=== PATIENT | male | born 1985 | race Caucasian/White ===

== ENCOUNTER 2019-12-18 08:25 | Emergency (ER) | payer OTHER ==
[2019-12-18 09:45] LABS: APPEARANCE,URINE SLIGHTLY-CLOUDY; BILIRUBIN,URINE NEGATIVE (NEGATIVE); COLOR,URINE DARK YELLOW; GLUCOSE, URINE NEGATIVE (NEGATIVE); KETONES,URINE NEGATIVE (NEGATIVE); LEUKOCYTE ESTERASE,URINE NEGATIVE (NEGATIVE); NITRITE,URINE NEGATIVE (NEGATIVE); PROTEIN,URINE 30 mg/dL (NEGATIVE); URINE SPECIFIC GRAVITY 1.026
[2019-12-18] MEDS ORDERED: HYDROCODONE/ACETAMINOPHEN 5-325 MG TABLET PO ONE (13:39)
--- NOTE | 2019-12-18 14:05 | RADIOLOGY REPORT (SQ) ---
EXAM DESCRIPTION: HIP LEFT AP/LATERAL IMAGES COMPLETED DATE/TIME: 12/18/2019 1:56 pm REASON FOR STUDY: left hip pain COMPARISON: None. NUMBER OF VIEWS: Two views. TECHNIQUE: AP pelvis and additional frog leg view of the left hip. LIMITATIONS: None. FINDINGS: MINERALIZATION: Normal. LEFT HIP: No fracture or dislocation. No worrisome bone lesions. RIGHT HIP: No fracture or dislocation. No worrisome bone lesions. Limited views. PUBIS AND ISCHIUM: No fracture. PELVIS: No fracture. SACRUM: No fracture or dislocation. No worrisome bone lesions. LOWER LUMBAR SPINE: No fracture or dislocation. No worrisome bone lesions. No significant disc disea se. SOFT TISSUES: No findings. OTHER: No other significant finding. IMPRESSION: NEGATIVE STUDY OF THE LEFT HIP AND PELVIS. NO ACUTE POST-TRAUMATIC CHANGES. NO EXPLANAT ION FOR PAIN. COMMENT: Pelvic fractures are often occult on plain radiographs. If strong clinical suspicion for fracture, recommend CT or MR. TECHNICAL DOCUMENTATION: JOB ID: [id number] 2010 [employer]- All Rights Reserved Reading location - IP/workstation name: [email or web address]
--- NOTE | 2019-12-18 15:46 | RADIOLOGY REPORT (SQ) ---
EXAM DESCRIPTION: CT LT LOWER EXTREMITY WITHOUT IMAGES COMPLETED DATE/TIME: 12/18/2019 3:27 pm REASON FOR STUDY: pain COMPARISON: None. TECHNIQUE: Axial imaging performed through the left lower extremity with reformatted coronal and sag ittal imaging windowed for bone and soft tissues. Images saved to PACS. 3D IMAGING: Were 3D images as MIP, SSD, or volume rendering performed at the work station? No. All CT scanners at this facility use dose modulation, iterative reconstruction, and/or weight based d osing when appropriate to reduce radiation dose to as low as reasonably achievable (ALARA). [facility]: Dose Right [facility]: CareDose [facility]: Dose Right [facility]: Teradose 4D [facility]: EverConnect LIMITATIONS: None. RADIATION DOSE: CT Rad equipment meets quality standard of care and radiation dose reduction techniq ues were employed. CTDIvol: 4.2 mGy. DLP: 394 mGy-cm. mGy. FINDINGS: SOFT TISSUES: No obvious swelling or foreign body. BONES: No acute fracture. No dislocation. MINERALIZATION: Normal. OTHER: No other significant finding. IMPRESSION: NO ACUTE OR SIGNIFICANT FINDING. TECHNICAL DOCUMENTATION: JOB ID: [id number] Quality ID # [id number]: Final reports with documentation of one or more dose reduction techniques (e.g., Au tomated exposure control, adjustment of the mA and/or kV according to patient size, use of iterative reconstruction technique) 2010 [employer]- All Rights Reserved Reading location - IP/workstation name: [email or web address]
--- NOTE | 2019-12-18 17:06 | ER Document Report ---
ED General - General Chief Complaint: Pelvic Pain Stated Complaint: HIP,PELVIC PAIN Time Seen by Provider: 12/18/19 12:02 Primary Care Provider: JUAN J,CHANTEL [Primary Care Provider] - Follow up as needed Mode of Arrival: Ambulatory Information source: Patient - HPI Notes: Patient complains of severe left inguinal pain. He states this is been going on for 4 to 5 days. What he got most severe after trying to lift some furniture. He states the pain starts in the anterior left inguinal area and radiates down the left leg. Patient denies any other recent trauma or injuries. No fevers. No abdominal pain. He denies any numbness or abnormal sensations. No problems with urine or stool. He has no symptoms of cauda equina. - Related Data Allergies/Adverse Reactions: No Known Allergies Allergy (Verified 12/18/19 09:06) Past Medical History - General Information source: Patient - Social History Smoking Status: Current Every Day Smoker Chew tobacco use (# tins/day): No Frequency of alcohol use: None Drug Abuse: None Family History: Reviewed & Not Pertinent Patient has homicidal ideation: No Review of Systems - Review of Systems Constitutional: denies: Chills, Fever Cardiovascular: denies: Chest pain, Palpitations Respiratory: denies: See HPI, Cough, Hemoptysis, Short of breath -: Yes All other systems reviewed and negative Physical Exam - Vital signs Vitals: Temp Pulse Resp BP Pulse Ox 98.6 F 94 18 116/94 H 97 12/18/19 08:34 12/18/19 08:34 12/18/19 08:34 12/18/19 08:34 12/18/19 08:34 Interpretation: Normal - General General appearance: Appears well, Alert - HEENT Head: Normocephalic, Atraumatic Eyes: Normal Pupils: PERRL - Respiratory Respiratory status: No respiratory distress Chest status: Nontender Breath sounds: Normal Chest palpation: Normal - Cardiovascular Rhythm: Regular Heart sounds: Normal auscultation Murmur: No - Abdominal Inspection: Normal Distension: No distension Bowel sounds: Normal Tenderness: Nontender Organomegaly: No organomegaly - Back Back: Normal, Nontender - Extremities General upper extremity: Normal inspection, Nontender, Normal color, Normal ROM, Normal temperature General lower extremity: Normal inspection, Normal color, Normal temperature, Other - Patient is tender about the anterior left hip as well as in the inguinal canal. However when I examined the patient for hernia no evidence of hernia can be appreciated. The hip is tender diffusely anteriorly. I cannot get any posterior hip tenderness. No tenderness of the mid thigh distally. Inspection of the entire thigh is unremarkable.. No: Rtia's sign - Neurological Neuro grossly intact: Yes Cognition: Normal Orientation: AAOx4 [place] Coma Scale Eye Opening: Spontaneous [place] Coma Scale Verbal: Oriented [place] Coma Scale Motor: Obeys Commands [place] Coma Scale Total: 15 Speech: Normal Motor strength normal: LUE, RUE, LLE, RLE Sensory: Normal - Psychological Associated symptoms: Normal affect, Normal mood - Skin Skin Temperature: Warm Skin Moisture: Dry Skin Color: Normal Course - Vital Signs Vital signs: Temp Pulse Resp BP Pulse Ox 98.6 F 94 18 116/94 H 97 12/18/19 08:34 12/18/19 08:34 12/18/19 08:34 12/18/19 08:34 12/18/19 08:34 - Laboratory Laboratory results interpreted by me: 12/18/19 09:24 Urine Protein 30 H Urine Urobilinogen 4.0 H - Diagnostic Test Radiology reviewed: Image reviewed, Reports reviewed Discharge - Discharge Clinical Impression: Left leg pain Condition: Stable Disposition: HOME, SELF-CARE Instructions: Leg Pain Nonspecific ([facility]) Additional Instructions: Please call orthopedics as soon as possible to arrange follow-up Prescriptions: Hydrocodone/Acetaminophen [[place] 5-325 mg Tablet] 1 tab PO Q6 PRN 3 Days #12 tablet PRN Reason: Forms: Return to Work Referrals: FREDRICK PACK JR, [ACTIVE PROVISIONAL STAFF] - Follow up in 1 week
--- NOTE | 2019-12-18 18:08 | RADIOLOGY REPORT (SQ) ---
EXAM DESCRIPTION: L SPINE 2 VIEWS IMAGES COMPLETED DATE/TIME: 12/18/2019 5:37 pm REASON FOR STUDY: pain COMPARISON: None. NUMBER OF VIEWS: Three views TECHNIQUE: AP, lateral, and coned down lateral radiographic images acquired of the lumbar spine. LIMITATIONS: None. FINDINGS: MINERALIZATION: Normal. SEGMENTATION: Normal. No transitional anatomy. ALIGNMENT: Normal. VERTEBRAE: Maintained height. No fracture or worrisome bone lesion. DISCS: Preserved height. No significant osteophytes or end plate irregularity. POSTERIOR ELEMENTS: Pedicles and facets are intact. No pars defect or posterior arch defects. HARDWARE: None in the spine. PARASPINAL SOFT TISSUES: Normal. PELVIS: Intact as visualized. No fractures or worrisome bone lesions. SI joints intact. OTHER: No other significant finding. IMPRESSION: NORMAL 2 VIEW LUMBAR SPINE. TECHNICAL DOCUMENTATION: JOB ID: [id number] [facility]- All Rights Reserved Reading location - IP/workstation name: [email or web address]
[2019-12-18 18:29] VITALS: BP 123/89
== END 2019-12-18 18:29 | disposition home or self-care (01) ==
LOC: ER 08:25
DX: M79.605 Pain in left leg (principal); X50.0XXA Overexertion from strenuous movement or load, initial encounter; F17.200 Nicotine dependence, unspecified, uncomplicated
CPT/HCPCS: 72100; 81001; 99285